=== PATIENT | male | born 1965 | race American Indian/Alaskan Native ===

== ENCOUNTER 2016-09-19 20:47 | Emergency (ER) | payer MEDICAID, OTHER ==
[2016-09-19 21:51] VITALS: BP 152/89
== END 2016-09-20 | disposition left against medical advice (07) ==
LOC: DL.ED 20:47
DX: Z53.21 Procedure and treatment not carried out due to patient leaving prior to being seen by health care provider (principal)
CPT/HCPCS: 99282

== ENCOUNTER 2016-09-20 15:50 | Emergency (ER) | payer MEDICAID, OTHER ==
[2016-09-20 16:06] VITALS: BP 147/91
--- NOTE | 2016-09-20 16:20 | EDM.PDOC ---
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 [Unable to Verify Home Med List] 09/19/16 09/19/16 Past Medical History - Past Health History Medical/Surgical History: Denies Medical/Surgical History HEENT History: Reports: Impaired vision Cardiovascular History: Reports: Hypertension - Past Surgical History GI Surgical History: Reports: Cholecystectomy, Hernia, abdominal Social & Family History - Family History Family Medical History: Noncontributory - Tobacco Use Smoking Status *Q: Current Some Day Smoker Years of Tobacco use: 20 Packs/Tins Daily: 0.1 Used Tobacco, but Quit: Yes Month Tobacco Last Used: ? - Caffeine Use Caffeine Use: Reports: Coffee - Recreational Drug Use Recreational Drug Use: Yes Drug Use in Last 12 Months: Yes Recreational Drug Type: Reports: Marijuana/Hashish Recreational Drug Use Frequency: Weekly ED ROS GENERAL - Review of Systems Review Of Systems: See Below Constitutional: Reports: no symptoms HEENT: Reports: No symptoms Respiratory: Reports: No Symptoms Cardiovascular: Reports: No symptoms Skin: Reports: wound Neurological: Reports: No Symptoms Hematologic/Lymphatic: Reports: no symptoms Immunologic: Reports: no symptoms ED EXAM, SKIN/RASH Exam: See Below Exam Limited By: No limitations General Appearance: alert, WD/WN, no apparent distress Respiratory/Chest: no respiratory distress, lungs clear Cardiovascular: regular rate, rhythm, no murmur GI/Abdominal: normal bowel sounds, other (patient has a midline abdominal hernia. This is reducible. Abdomen is soft to palpation. Periumbilical he has a small 1 x 2 cm lesion that extends into the dermis. It readily bleeds on exam. There's no evidence of secondary infection. Does not communicate to the underlying peritoneal. There is no evidence of fistula. No evidence of peritonitis on examination. The right and left lower quadrant pain on palpation. Bowel sounds are noted.) Extremities: normal capillary refill Neurological: alert, oriented, CN II-XII intact Course - Vital Signs Last Recorded V/S: Last Vital Signs Temp 98.0 F 09/20/16 16:05 Pulse 62 09/20/16 16:05 Resp 20 09/20/16 16:05 BP 147/91 H 09/20/16 16:05 Pulse Ox 98 09/20/16 16:05 - Orders/Labs/Meds Orders: Active Orders 24 hr Category Date Time Status CULTURE WOUND [RM] Stat Lab 09/20/16 16:31 Received Labs: Laboratory Tests 09/20/16 Range/Units 16:30 WBC 9.8 (5.0-10.0) 10^3/uL RBC 5.23 (4.6-6.2) 10^6/uL Hgb 16.3 (14.0-18.0) g/dL Hct 48.0 (40.0-54.0) % MCV 91.8 (80-100) fL MCH 31.2 (27.0-34.0) pg MCHC 34.0 (33.0-35.0) g/dL Plt Count 233 (150-450) 10^3/uL Neut % (Auto) 49.5 (42.2-75.2) % Lymph % (Auto) 40.9 (20.5-50.1) % [place] % (Auto) 8.7 H (2-8) % Eos % (Auto) 0.6 L (1.0-3.0) % Baso % (Auto) 0.3 (0.0-1.0) % Add Manual Diff Yes Neutrophils % (Manual) 49 % Lymphocytes % (Manual) 45 % Atypical Lymphs % 2 % Monocytes % (Manual) 4 % - Re-Assessments/Exams Free Text/Narrative Re-Assessment/Exam: wound was cleaned after wound culture obtained. Surgicel applied with bulky dressing, nonadherent dressing and expandable surgical tape. 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 Continue with obtaining surgical consult for hernia repair. Continue taking medications as directed.call if any questions or concerns - My Orders Last 24 Hours: My Active Orders 09/20/16 16:31 CULTURE WOUND [RM] Stat - Assessment/Plan Last 24 Hours: My Active Orders 09/20/16 16:31 CULTURE WOUND [RM] Stat
== END 2016-09-20 16:56 | disposition home or self-care (01) ==
LOC: DL.ED 15:50
DX: K42.9 Umbilical hernia without obstruction or gangrene (principal); L98.491 Non-pressure chronic ulcer of skin of other sites limited to breakdown of skin; I10 Essential (primary) hypertension; Z90.49 Acquired absence of other specified parts of digestive tract
CPT/HCPCS: 36415; 85025; 87070; 87077; 87186; 99283

== ENCOUNTER 2023-04-17 10:24 | Emergency (ER) | payer OTHER ==
[~2023-04-17 10:24] MED LIST: Iopamidol 612 MG/ML 100 ML Bottle IVPUSH ONE; Ketorolac 30 MG/ML SDV IVPUSH ONE; Sodium Chloride 0.9% 10 ML Syringe FLUSH PRN
[2023-04-17 10:26] VITALS: BP 132/96; PULSE 61
[2023-04-17 10:50] LABS: BASOPHILS PERCENT AUTO 0.2 % (0.0-1.0); EOSINOPHILS PERCENT AUTO 0.5 % (1.0-3.0); HEMATOCRIT 51.3 % (40.0-54.0); HEMOGLOBIN 17.5 g/dL (14.0-18.0); MEAN CORPUSCULAR HEMOGLOBIN 31.3 pg (27.0-34.0); MEAN CORPUSCULAR HGB CONC 34.1 g/dL (33.0-35.0); MEAN CORPUSCULAR VOLUME 91.8 fL (80-100); MONOCYTES PERCENT AUTO 7.9 % (2-8); NEUTROPHILS PERCENT AUTO 80.4 % (42.2-75.2); PLATELET COUNT,PLT 268 10^3/uL (150-450); RED BLOOD CELL COUNT 5.59 10^6/uL (4.6-6.2); WHITE BLOOD CELL COUNT,WBC 12.3 10^3/uL (5.0-10.0)
[2023-04-17 10:52] LABS: ANION GAP 15.7 mEq/L (7-13); CALCIUM 9.5 mg/dL (8.5-10.1); CREATININE 0.98 mg/dL (0.70-1.30); EST CRCL DRUG DOSING (CG) 77.75 mL/min; POTASSIUM,K 3.7 mmol/L (3.5-5.1)
[2023-04-17] MEDS ORDERED: Benzocaine 20% Topical Spray UD MUCMEM ONE (11:41)
[2023-04-17] MEDS ORDERED: Cefepime 2 GM Vial IVPUSH ONE (11:54)
[2023-04-17 12:12] LABS: LACTIC ACID 1.4 mmol/L (0.4-2.0)
== END 2023-04-17 13:55 ==
LOC: DL.ED 10:24
DX: K43.6 Other and unspecified ventral hernia with obstruction, without gangrene (principal); I10 Essential (primary) hypertension; I25.2 Old myocardial infarction; I25.10 Atherosclerotic heart disease of native coronary artery without angina pectoris; E66.9 Obesity, unspecified; E78.00 Pure hypercholesterolemia, unspecified; Z79.82 Long term (current) use of aspirin; Z79.899 Other long term (current) drug therapy; Z68.34 Body mass index [BMI] 34.0-34.9, adult
CPT/HCPCS: 36415; 43752; 71045; 74018; 74177; 80048; 83605; 85025; 96365; 96375; 99284; 99285; J0692; J1885; J3370; J7050; Q9967; J3490

== ENCOUNTER 2023-11-16 23:33 | Emergency (ER) | payer MEDICAID ==
[2023-11-17 00:23] LABS: BASOPHILS PERCENT AUTO 0.3 % (0.0-1.0); EOSINOPHILS PERCENT AUTO 3.2 % (1.0-3.0); HEMATOCRIT 33.7 % (40.0-54.0); HEMOGLOBIN 10.8 g/dL (14.0-18.0); LYMPHOCYTES PERCENT AUTO 26.4 % (20.5-50.1); MEAN CORPUSCULAR HEMOGLOBIN 31.8 pg (27.0-34.0); MEAN CORPUSCULAR VOLUME 99.1 fL (80-100); MONOCYTES PERCENT AUTO 9.2 % (2-8); NEUTROPHILS PERCENT AUTO 60.9 % (42.2-75.2); PLATELET COUNT,PLT 418 10^3/uL (150-450); WHITE BLOOD CELL COUNT,WBC 6.9 10^3/uL (5.0-10.0)
[2023-11-17 00:30] VITALS: BP 155/96; PULSE 64
[2023-11-17] MEDS: Lactated Ringers 1,000 ML IV SCH (00:33)
[2023-11-17] MEDS: Sodium Chloride 0.9% 10 ML Syringe FLUSH PRN (00:33)
[2023-11-17 00:41] LABS: ALBUMIN 3.3 g/dL (3.4-5.0); ANION GAP 12.9 mEq/L (7-13); BUN/CREATININE RATIO 13.2 (No establ ref range); CREATININE 0.91 mg/dL (0.70-1.30); EST CRCL DRUG DOSING (CG) 86.65 mL/min; POTASSIUM,K 3.9 mmol/L (3.5-5.1); PROTEIN TOTAL,TP 7.7 g/dL (6.4-8.2)
[2023-11-17 00:42] LABS: A/G RATIO 0.75
[2023-11-17 00:43] LABS: INR 0.9 (0.9-1.2); PROTHROMBIN TIME 9.8 SEC (9.0-12.0); PTT,PARTIAL THROMBOPLSTIN TIME 25.9 SEC (22.0-34.0)
[2023-11-17] MEDS: Morphine 2 MG/ML SYRINGE IVPUSH ONE (00:49)
[2023-11-17] MEDS: Iopamidol 612 MG/ML 100 ML Bottle IVPUSH ONE (01:03)
== END 2023-11-17 02:30 ==
LOC: DL.ED 23:33
DX: L76.32 Postprocedural hematoma of skin and subcutaneous tissue following other procedure (principal); D62 Acute posthemorrhagic anemia; I10 Essential (primary) hypertension; I25.10 Atherosclerotic heart disease of native coronary artery without angina pectoris; I25.2 Old myocardial infarction; E78.00 Pure hypercholesterolemia, unspecified; E66.9 Obesity, unspecified; Z79.82 Long term (current) use of aspirin; Z79.899 Other long term (current) drug therapy; Z68.34 Body mass index [BMI] 34.0-34.9, adult
CPT/HCPCS: 36415; 74177; 80053; 85025; 85610; 85730; 86850; 86900; 86901; 96374; 99285-25; J2270; J3490; J7120; Q9967